=== PATIENT | female | born 1965 | race African-American/Black ===

== ENCOUNTER → 2016-12-11 | Day surgery (SDC) | payer OTHER ==
--- NOTE | 2016-12-11 12:33 | NUR ---
SURGEY CANCELLED TODAY PER RAJ ARMSTRONG CRNA AFTER CONFERRING WITH AND DUE TO HTN. PT'S BP UPON ARRIVAL WAS 200/144. CHECKED TWO MORE TIMES BEFORE ALERTING ANESTHESIA. 194/101, 188/137. LABETOLOL 20 MG AND ESMOLOL 40 MG GIVEN IV BY ANESTHESIA. BP CONTINUED TO BE ELEVATED. VALENTIN ANTHONY ADVISED PT TO F/U WITH PCP ELSIE AND IF CAN'T GET HER IN TODAY TO CALL HOSPITALIST. APPT MADE WITH [facility] FOR Wednesday12/14/16 AT 10:45. CALLED HOSPITALIST ON DUTY, . HE ADVISED US TO CANCEL PROCEDURE, HAVE HER F/U WITH PCP, AND HAVE ANESTHEISA WRITE HER A SCRIPT FOR LISINOPRIL 20 MG PO DAILY. NOTIFIED ON 'S ORDERS AND HE DECLINED TO WRITE BP SCRIPT. ADVISED TO HAVE PT CONTINUE HER LABETOLOL AT HOME. SHE ONLY HAS TWO PILLS TOTAL SO TAKE 1 PILL SAT AND 1 SUN. HER SCRIPT IS FOR LABETOLOL "100 MG THREE TIMES DAILY." SEE PCP AT SCHEDULED APPT WEDNESDAY. NOTIFIED [facility] THAT PROCEDURE CANCELLED TODAY AND OF APPT FOR WEDNESDAY WITH PCP. ASKED THEM TO FAX ANY RECORDS AVAILABLE TO [facility]. LAST BP BEFORE D/C WAS 176/124.
== END | disposition home or self-care (01) ==
LOC: FAS 10:09
DX: C50.911 Malignant neoplasm of unspecified site of right female breast (principal); I10 Essential (primary) hypertension; G47.30 Sleep apnea, unspecified; I87.2 Venous insufficiency (chronic) (peripheral); Z79.899 Other long term (current) drug therapy; Z98.890 Other specified postprocedural states; Z53.8 Procedure and treatment not carried out for other reasons
CPT/HCPCS: J1644; J3010

== ENCOUNTER → 2016-12-18 | Day surgery (SDC) | payer OTHER ==
[~2016-12-18] VITALS: Ht 167.6 cm; Wt 118.6 kg
== END | disposition home or self-care (01) ==
LOC: FAS 09:54
DX: I87.2 Venous insufficiency (chronic) (peripheral) (principal); I10 Essential (primary) hypertension; G47.30 Sleep apnea, unspecified; C50.911 Malignant neoplasm of unspecified site of right female breast; Z79.899 Other long term (current) drug therapy; Z98.890 Other specified postprocedural states
CPT/HCPCS: 71010; 76000; 84703; C1788; J0690; J0743; J1644; J2704; J3010

== ENCOUNTER 2021-05-06 11:53 | Emergency (ER) | payer OTHER ==
[~2021-05-06 11:53] MED LIST: CIPRO500 MG PO; LASIX40 MG PO
[2021-05-06 13:13] LABS: BASOPHIL 1.6 % (0-2); EOSINOPHIL 0 % (0-5); HCT 30.6 % (37.0-47.0); LYMPHOCYTE 47.3 % (15-48); MCH 29.2 pg (25.0-31.0); MCHC 32.7 g/dL (32.0-36.0); MCV 89.5 fL (78.0-100.0); MONOCYTE 16.3 % (0-12); MPV 12.1 fL (6.0-9.5); NEUTROPHIL 30.9 % (41-80); NRBC 0; PLT 225 K/uL (150-400); RBC 3.42 M/uL (4.20-5.40); RDW 16.3 % (11.5-14.0)
[2021-05-06 13:18] LABS: WBC 1.3 K/uL (4.0-10.5)
[2021-05-06 13:48] LABS: BILIRUBIN - TOTAL 0.8 mg/dL (0.2-1.0); BUN/CREAT RATIO (CALC) 17.6 RATIO; CREATININE 0.85 mg/dL (0.51-0.95); GLOBULIN (CALCULATION) 3.4 g/dL; POTASSIUM 4.6 mmol/L (3.5-5.1); TOTAL PROTEIN 6.4 g/dL (6.4-8.2)
== END 2021-05-06 15:40 | disposition home or self-care (01) ==
LOC: FER 11:53
PROVIDERS: Internal Medicine
DX: U07.1 COVID-19 (principal); I10 Essential (primary) hypertension
CPT/HCPCS: 36415; 80053; 85025; J7030; M0243; Q0244